=== PATIENT | male | born 1960 | race Caucasian/White ===

== ENCOUNTER 2016-11-28 10:17 | Emergency (ER) | payer OTHER ==
[~2016-11-28] VITALS: Ht 165.1 cm; Wt 63.5 kg
--- NOTE | 2016-11-28 10:17 | NUR ---
Patient BIBA ACLS, transferred to bed 6. RN evaluating patient at bedside.
[2016-11-28 10:22] VITALS: BP 92/47
--- NOTE | 2016-11-28 10:23 | NUR ---
56/M BIBA FOR EVALUATION OF CHEST PAIN X3 DAYS. HX HTN, DM, HYPERLIPIDEMIA, BLINDNESS. DENIES N/V/D; SKIN IS PINK/WARM/DRY; AAOX4 WITH EVEN AND STEADY GAIT; LUNGS CLEAR BL; HR EVEN AND REGULAR; PT DENIES ANY FEVER, SOB, OR COUGH AT THIS TIME; PATIENT STATES BURNING PAIN OF 6/10 AT THIS TIME; PATIENT POSITIONED FOR COMFORT; HOB ELEVATED; BEDRAILS UP X2; BED DOWN. ER MD MADE AWARE OF PT STATUS.
--- NOTE | 2016-11-28 10:24 | NUR ---
EKG completed at bedside by EMT.
--- NOTE | 2016-11-28 10:30 | NUR ---
X RAY AT BEDSIDE.
--- NOTE | 2016-11-28 10:40 | NUR ---
LAB AT BEDSIDE
[2016-11-28 10:55] LABS: BASOPHILS # (AUTO) 0.2 K/uL (0.00-0.22); BASOPHILS % (AUTO) 2.7 % (0.0-2.0); EOSINOPHILS # (AUTO) 0.2 K/uL (0-0.4); EOSINOPHILS % (AUTO) 3.1 % (0.0-4.0); HEMOGLOBIN 11.4 g/dL (12.0-18.0); LYMPHOCYTES # (AUTO) 1.3 K/uL (2.0-11.5); LYMPHOCYTES % (AUTO) 23.8 % (20.5-51.1); MEAN CORPUSCULAR HEMOGLOBIN 28 pg (27-31); MEAN CORPUSCULAR HGB CONC 33 g/dL (33-37); MEAN CORPUSCULAR VOLUME 84 fL (80-94); MONOCYTES # (AUTO) 0.5 K/uL (0.8-1.0); MONOCYTES % (AUTO) 8.9 % (1.7-9.3); NEUTROPHILS # (AUTO) 3.4 K/uL (1.8-7.7); NEUTROPHILS % (AUTO) 61.5 % (42.2-75.2); PLATELET COUNT (AUTO) 214 K/uL (140-450); RED BLOOD CELL COUNT(AUTO) 4.15 MIL/uL (4.20-6.10); WHITE BLOOD COUNT (AUTO) 5.6 K/uL (4.8-10.8)
[2016-11-28] MEDS ORDERED: KETOROLAC 60 MG/2 ML VIAL IM ONE (10:55)
[2016-11-28 11:20] LABS: INR 1.1 (0.8-1.2); PARTIAL THROMBOPLASTIN TIME 23.7 secs (22-35.6); PROTHROMBIN TIME 10.2 secs (10.8-13.4)
[2016-11-28 11:28] LABS: ANION GAP 12.4 (8-16); CALCIUM 9.5 mg/dL (8.5-10.1); CARBON DIOXIDE 29.4 mmol/L (21-32); CREATININE 1.3 mg/dL (0.6-1.3); POTASSIUM 3.8 mmol/L (3.5-5.1)
[2016-11-28 11:36] LABS: ALBUMIN 3.4 g/dL (3.4-5.0); TOTAL BILIRUBIN 0.3 mg/dL (0.0-1.0)
[2016-11-28 11:46] VITALS: BP 120/76
--- NOTE | 2016-11-28 11:46 | NUR ---
Patient discharged with v/s stable. Written and verbal after care instructions given and explained. Patient alert, oriented and verbalized understanding of instructions. Ambulatory witH CANE. All questions addressed prior to discharge. ID band removed. Patient advised to follow up with PMD. Rx of NORCO,PRELOSEC &PREDNISONE given. Patient educated on indication of medication including possible reaction and side effects. Opportunity to ask questions provided and answered.
== END 2016-11-28 11:46 | disposition home or self-care (01) ==
LOC: MED 10:17
DX: R07.89 Other chest pain (principal); R05 Cough; E11.9 Type 2 diabetes mellitus without complications; I10 Essential (primary) hypertension; Z89.429 Acquired absence of other toe(s), unspecified side
CPT/HCPCS: 36415; 71010; 80053; 82948; 83880; 84484; 85025; 85610; 85730; 93005; 96372; 99285; J1885; Q0092

== ENCOUNTER 2019-01-25 10:16 | Emergency (ER) | payer MEDICAID, OTHER ==
[~2019-01-25] VITALS: Ht 160 cm; Wt 64.0 kg
[2019-01-25 10:38] VITALS: BP 148/85
--- NOTE | 2019-01-25 10:44 | NUR ---
PATIENT AMBULATED WITH ASSISTANCE TO BED 2.
--- NOTE | 2019-01-25 10:45 | NUR ---
58 y male accompanied by spouse. pt c/o intermittent left sided numbness, unable to speak clearly x 3-4 days. denies recent injury or cold symptoms. no facial asymmetry noted at this time, denies headache, full clear speech, equal drapery examiner/pushes. aa0x4. bed is down, locked, bed rail x 1, ermd to see pt. pt is maltese speaking only. ambulatory with steady gait hx--blind, dm, htn rx---metformin, glipizide, losartan
--- NOTE | 2019-01-25 10:54 | NUR ---
PT BEING TAKEN TO CT VIA WHEELCHAIR
--- NOTE | 2019-01-25 11:03 | NUR ---
pt returned from ct
--- NOTE | 2019-01-25 11:10 | NUR ---
pt amb to restroom with steady gait
--- NOTE | 2019-01-25 11:15 | NUR ---
labs drawn bedside and placed for lab to pickup
--- NOTE | 2019-01-25 12:31 | NUR ---
dr flores at bedside
[2019-01-25] MEDS ORDERED: KETOROLAC 60 MG/2 ML VIAL IM ONE (12:35)
[2019-01-25] MEDS ORDERED: KETOROLAC 30 MG/ML VIAL IVP ONE (13:30)
[2019-01-25 13:52] VITALS: BP 142/81
--- NOTE | 2019-01-25 13:52 | NUR ---
Patient discharged with v/s stable. Written and verbal after care instructions given and explained. Patient alert, oriented and verbalized understanding of instructions. Ambulatory with steady gait. All questions addressed prior to discharge. ID band removed. Patient advised to follow up with PMD. Rx of prednisone, motrin, acyclovir given. Patient educated on indication of medication including possible reaction and side effects. Opportunity to ask questions provided and answered. felecia spring translated to bahamian
== END 2019-01-25 13:52 | disposition home or self-care (01) ==
LOC: MED 10:16
DX: G51.0 Bell's palsy (principal); E11.9 Type 2 diabetes mellitus without complications; H54.7 Unspecified visual loss; I10 Essential (primary) hypertension; Z89.429 Acquired absence of other toe(s), unspecified side
CPT/HCPCS: 70450; 82948; 96374; 99284; J1885